=== PATIENT | female | born 1985 | race Caucasian/White ===

== ENCOUNTER 2017-05-18 06:36 | Emergency (ER) | payer SELFPAY ==
[2017-05-18 07:03] VITALS: BP 117/68
== END 2017-05-18 07:03 | disposition home or self-care (01) ==
LOC: ED 06:36
DX: S09.90XA Unspecified injury of head, initial encounter (principal); X58.XXXA Exposure to other specified factors, initial encounter; Y93.89 Activity, other specified; Y99.8 Other external cause status; Y92.89 Other specified places as the place of occurrence of the external cause

== ENCOUNTER 2017-06-12 04:46 | Emergency (ER) | payer SELFPAY ==
[2017-06-12 05:18] VITALS: BP 123/74
== END 2017-06-12 05:18 | disposition home or self-care (01) ==
LOC: ED 04:46
DX: L03.211 Cellulitis of face (principal); L03.811 Cellulitis of head [any part, except face]

== ENCOUNTER 2017-07-14 05:28 | Emergency (ER) | payer MEDICAID ==
[~2017-07-14] VITALS: Ht 154.9 cm; Wt 82.6 kg
[2017-07-14 06:46] LABS: BASOPHIL % 0.5 % (0-2); PLATELET COUNT 367 x10^3mcL (130-400)
[2017-07-14 06:55] LABS: CALCIUM 9.1 mg/dL (8.5-10.1); CARBON DIOXIDE 31.2 mmol/L (21-32); CHLORIDE SERUM 102 mmol/L (98-107); CREATININE SERUM 0.7 mg/dL (0.6-1.0); GFR1 > 60 mL/min; GLUCOSE SERUM 88 mg/dL (74-106); POTASSIUM SERUM 3.5 mmol/L (3.5-5.1); RED CELL DISTRIBUTION WIDTH 15.7 % (11.5-14.5); SODIUM SERUM 141 mmol/L (136-145)
[2017-07-14 07:00] LABS: ALKALINE PHOSPHATASE 139 U/L (46-116); ALT/SGPT 36 U/L (14-59); AMYLASE 25 U/L (25-115); AST/SGOT 17 U/L (15-37); BILIRUBIN TOTAL 0.24 mg/dL (0.20-1.00); LIPASE 67 IU/L (73-393); TOTAL PROTEIN, SERUM 7.9 g/dL (6.4-8.2)
[2017-07-14 07:02] LABS: ALBUMIN 3.3 g/dL (3.4-5.0)
[2017-07-14 08:10] VITALS: BP 123/87
== END 2017-07-14 08:10 | disposition home or self-care (01) ==
LOC: ED 05:28
PROVIDERS: Emergency Medicine
DX: A54.9 Gonococcal infection, unspecified (principal); K59.00 Constipation, unspecified; Z88.0 Allergy status to penicillin; Z90.49 Acquired absence of other specified parts of digestive tract
CPT/HCPCS: 83880; J0696; J1885; Q0092

== ENCOUNTER 2017-09-27 01:55 | Emergency (ER) | payer OTHER ==
[~2017-09-27] VITALS: Ht 154.9 cm; Wt 82.1 kg
[2017-09-27 02:15] VITALS: Ht 154.9 cm; Wt 82.1 kg
[2017-09-27 03:45] VITALS: BP 118/71
== END 2017-09-27 03:45 | disposition home or self-care (01) ==
LOC: ED 01:55
DX: S40.012A Contusion of left shoulder, initial encounter (principal); Y04.0XXA Assault by unarmed brawl or fight, initial encounter; Y92.89 Other specified places as the place of occurrence of the external cause; Y93.89 Activity, other specified; Y99.8 Other external cause status
CPT/HCPCS: J1885

== ENCOUNTER 2018-05-11 18:01 | Emergency (ER) | payer OTHER ==
[~2018-05-11] VITALS: Ht 154.9 cm; Wt 93.9 kg
[2018-05-11 18:08] VITALS: Ht 154.9 cm; Wt 93.9 kg
[2018-05-11 20:38] VITALS: BP 116/72
== END 2018-05-11 20:38 | disposition home or self-care (01) ==
LOC: ED 18:01
DX: S01.81XA Laceration without foreign body of other part of head, initial encounter (principal); W19.XXXA Unspecified fall, initial encounter; Y93.89 Activity, other specified; Y92.89 Other specified places as the place of occurrence of the external cause; Y99.8 Other external cause status; Z90.49 Acquired absence of other specified parts of digestive tract
CPT/HCPCS: 12053; J2001

== ENCOUNTER 2018-05-18 17:01 | Emergency (ER) | payer OTHER ==
[~2018-05-18] VITALS: Ht 154.9 cm; Wt 94.8 kg
[2018-05-18 17:13] VITALS: BP 142/86; Ht 154.9 cm; Wt 94.8 kg
== END 2018-05-18 18:00 | disposition home or self-care (01) ==
LOC: ED 17:01
DX: S01.81XD Laceration without foreign body of other part of head, subsequent encounter (principal); X58.XXXD Exposure to other specified factors, subsequent encounter; Z90.49 Acquired absence of other specified parts of digestive tract

== ENCOUNTER 2018-08-03 02:12 | Emergency (ER) | payer OTHER ==
[~2018-08-03] VITALS: Ht 154.9 cm; Wt 91.7 kg
[2018-08-03 02:31] VITALS: Ht 154.9 cm; Wt 91.7 kg
[2018-08-03 03:32] VITALS: BP 130/91
== END 2018-08-03 03:32 | disposition home or self-care (01) ==
LOC: ED 02:12
DX: J20.9 Acute bronchitis, unspecified (principal); L03.211 Cellulitis of face; Z90.49 Acquired absence of other specified parts of digestive tract; Z98.890 Other specified postprocedural states
CPT/HCPCS: Q0092

== ENCOUNTER 2018-09-15 04:00 | Emergency (ER) | payer OTHER ==
[~2018-09-15] VITALS: Ht 154.9 cm; Wt 90.3 kg
[2018-09-15 04:09] VITALS: Ht 154.9 cm; Wt 90.3 kg
[2018-09-15 05:27] VITALS: BP 122/84
== END 2018-09-15 05:27 | disposition home or self-care (01) ==
LOC: ED 04:00
DX: S70.12XA Contusion of left thigh, initial encounter (principal); S29.9XXA Unspecified injury of thorax, initial encounter; R58 Hemorrhage, not elsewhere classified; Z98.890 Other specified postprocedural states; Z90.49 Acquired absence of other specified parts of digestive tract; Y08.89XA Assault by other specified means, initial encounter; Y93.89 Activity, other specified; Y92.89 Other specified places as the place of occurrence of the external cause; Y99.8 Other external cause status
CPT/HCPCS: Q0092

== ENCOUNTER 2019-03-06 | Emergency (ER) | payer OTHER ==
[~2019-03-06] VITALS: Ht 154.9 cm; Wt 89.4 kg
[2019-03-06 00:13] VITALS: Ht 154.9 cm; Wt 89.4 kg
[2019-03-06 01:25] VITALS: BP 139/102
== END 2019-03-06 01:25 | disposition home or self-care (01) ==
LOC: ED
DX: S61.411A Laceration without foreign body of right hand, initial encounter (principal); Z59.0 Homelessness; X58.XXXA Exposure to other specified factors, initial encounter; Y93.89 Activity, other specified; Y92.89 Other specified places as the place of occurrence of the external cause; Y99.8 Other external cause status

== ENCOUNTER 2019-05-16 22:00 | Emergency (ER) | payer OTHER ==
[~2019-05-16] VITALS: Ht 162.6 cm; Wt 83.6 kg
[2019-05-16 23:43] LABS: CALCIUM 9.4 mg/dL (8.5-10.1); CARBON DIOXIDE 27.8 mmol/L (21-32); CHLORIDE SERUM 102 mmol/L (98-107); CREATININE SERUM 0.8 mg/dL (0.6-1.0); GFR1 > 60 mL/min; GLUCOSE SERUM 83 mg/dL (74-106); SODIUM SERUM 142 mmol/L (136-145)
[2019-05-16 23:47] LABS: ALBUMIN 3.8 g/dL (3.4-5.0); ALKALINE PHOSPHATASE 96 U/L (46-116); ALT/SGPT 31 U/L (14-59); AST/SGOT 19 U/L (15-37); BILIRUBIN TOTAL 0.5 mg/dL (0.20-1.00); LIPASE 36 IU/L (73-393); TOTAL PROTEIN, SERUM 7.5 g/dL (6.4-8.2)
[2019-05-16 23:51] LABS: BASOPHIL % 0.7 % (0-2); PLATELET COUNT 265 x10^3mcL (130-400)
[2019-05-16 23:53] LABS: RED CELL DISTRIBUTION WIDTH 16.1 % (11.5-14.5)
[2019-05-16 23:54] LABS: UA SPECIFIC GRAVITY >=1.030 (1.005-1.035); microscopic required? YES; urine erythrocyte 2+ (NEGATIVE)
[2019-05-17 01:59] VITALS: BP 113/74
[2019-05-18 04:06] LABS: RAPID PLASMA REAGIN Non Reactive (Non Reactive)
== END 2019-05-17 01:59 | disposition home or self-care (01) ==
LOC: ED 22:00
PROVIDERS: Emergency Medicine
DX: R10.30 Lower abdominal pain, unspecified (principal); N88.8 Other specified noninflammatory disorders of cervix uteri; F17.210 Nicotine dependence, cigarettes, uncomplicated; Z71.6 Tobacco abuse counseling; Z98.890 Other specified postprocedural states; Z90.49 Acquired absence of other specified parts of digestive tract; Z59.0 Homelessness
CPT/HCPCS: 87491; 87591; 99406; J0696; J1885; J7030